=== PATIENT | female | born 1955 | race Caucasian/White ===

== ENCOUNTER 2017-12-01 10:19 | Emergency (ER) | payer BC ==
[~2017-12-01] VITALS: Ht 152.4 cm; Wt 86.0 kg
[2017-12-01 11:31] LABS: BASOPHILS % (AUTO) 0.6 % (0-1); EOSINOPHILS # (AUTO) 0.1 X10'3 (0-0.9); EOSINOPHILS % (AUTO) 1.4 % (0-6); HEMATOCRIT 42.2 % (35.0-45.0); HEMOGLOBIN 14.8 g/dl (12.0-16.0); LYMPHOCYTES # (AUTO) 1.2 X10'3 (1.1-4.8); LYMPHOCYTES % (AUTO) 15.4 % (21-51); MEAN CORPUSCULAR HEMOGLOBIN 34.7 PG (27.0-31.0); MEAN CORPUSCULAR HGB CONC 35.1 % (33.0-36.5); MEAN CORPUSCULAR VOLUME 98.7 FL (78-98); MEAN PLATELET VOLUME 9.1 FL (7.4-10.4); MONOCYTES # (AUTO) 0.3 X10'3 (0-0.9); NEUTROPHILS # (AUTO) 6.1 X10'3 (1.8-7.7); NEUTROPHILS % (AUTO) 78.6 % (42-75); PLATELET COUNT 176 X10'3 (140-440); RED BLOOD COUNT 4.27 X10'6 (4.20-5.60); RED CELL DISTRIBUTION WIDTH 13.1 % (11.5-14.5); WHITE BLOOD COUNT 7.8 X10'3 (4.5-11.0)
[2017-12-01 11:35] LABS: PARTIAL THROMBOPLASTIN TIME 22 SECONDS (22-32); PROTHROMBIN TIME 9.9 SECONDS (9.0-12.0)
[2017-12-01 11:47] LABS: ALANINE AMINOTRANSFERASE 78 U/L (12-78); ALBUMIN 4.1 G/DL (3.4-5.0); ANION GAP 14 (8-16); ASPARTATE AMINO TRANSFERASE 99 U/L (10-37); BILIRUBIN,TOTAL 0.6 MG/DL (0.1-1.0); BLOOD UREA NITROGEN 12 MG/DL (7-18); BUN/CREATININE RATIO 18.5 (6.6-38.0); CALCIUM 9.3 MG/DL (8.5-10.1); CHLORIDE 103 MMOL/L (99-107); CREATININE 0.65 MG/DL (0.40-0.90); GLUCOSE 125 MG/DL (70-104); POTASSIUM 4.3 MMOL/L (3.5-5.1); SODIUM 139 MMOL/L (135-145); TOTAL CARBON DIOXIDE 22.3 MMOL/L (24-32); TOTAL PROTEIN 8.2 G/DL (6.4-8.2); eGFR > 90 ML/MIN
[2017-12-01 11:48] LABS: ALKALINE PHOSPHATASE 139 IU/L (46-116)
[2017-12-01] MEDS ORDERED: metoclopramide 5 mg/ml inj IV ONE (12:40)
[2017-12-01] MEDS ORDERED: mag hydrox/Alum hydrox/simeth 30ml oral suspension PO ONE (12:40)
[2017-12-01] MEDS ORDERED: normal saline 1000ml 1,000 ML IV ONE (12:40)
[2017-12-01 12:58] LABS: LIPASE 56 U/L (73-393)
[2017-12-01] MEDS ORDERED: ondansetron/PF 4mg/2ml inj IV ONE (13:00)
[2017-12-01] MEDS ORDERED: meclizine 12.5mg tablet PO ONE (13:20)
[2017-12-01] MEDS ORDERED: ondansetron 4mg rapidly disintigrating tab PO ONE (13:20)
[2017-12-01 14:38] LABS: CLARITY,URINE CLEAR (Clear); COLOR,URINE YELLOW (Yellow); GLUCOSE, URINE NEGATIVE (Neg); KETONES,URINE TRACE mg/dl (Neg); LEUKOCYTE ESTERASE ,URINE NEGATIVE (Neg); NITRITES, URINE NEGATIVE (Neg); OCCULT BLOOD,URINE NEGATIVE (Neg); PH,URINE 5.5 (4.8-8.0); PROTEIN,URINE NEGATIVE (Neg); UROBILINOGEN,URINE 0.2 E.U/dL (0.2-1.0)
[2017-12-01 14:45] LABS: UA COLLECTION TYPE CLN CATCH MIDSTREAM
[2017-12-01] MEDS ORDERED: MECL-111 PO (15:47)
[2017-12-01 16:02] VITALS: BP 131/79
== END 2017-12-01 16:10 | disposition home or self-care (01) ==
LOC: ER 10:20
DX: R42 Dizziness and giddiness (principal); R11.10 Vomiting, unspecified; Z79.899 Other long term (current) drug therapy
CPT/HCPCS: 36415; 71045; 80053; 81003; 82948; 83690; 84484; 85025; 85610; 85730; 93005; 96360; 99285; J7030; J8597

== ENCOUNTER 2021-04-25 15:42 | Emergency (ER) | payer MEDICARE ==
[~2021-04-25] VITALS: Ht 152.4 cm; Wt 84.7 kg
[~2021-04-25 15:42] MED LIST: MECL-159 PO
[2021-04-25 16:30] VITALS: BP 163/94
[2021-04-25] MEDS ORDERED: sulfamethoxazole/trimethoprim DS (800/160mg) tablet PO ONE (16:50)
[2021-04-25] MEDS ORDERED: SULF1TAB48 PO (17:18)
== END 2021-04-25 17:44 | disposition home or self-care (01) ==
LOC: ER 15:42
DX: T81.33XD Disruption of traumatic injury wound repair, subsequent encounter (principal); L03.116 Cellulitis of left lower limb; Z79.2 Long term (current) use of antibiotics; Z79.899 Other long term (current) drug therapy; X58.XXXD Exposure to other specified factors, subsequent encounter
CPT/HCPCS: 73660; 99283

== ENCOUNTER 2021-05-01 12:34 | Emergency (ER) | payer MEDICARE ==
[~2021-05-01] VITALS: Ht 152.4 cm; Wt 79.0 kg
[~2021-05-01 12:34] MED LIST changes: +SULF1TAB48 PO
--- NOTE | 2021-05-01 13:01 | NUR ---
DAUGHTER SAYS PT HAS PAIN IN RIB CAGE, PT HAS BEEN TAKING IBUPROFEN FOR PAIN AND WANTS A STRONGER MEDICATION, DAUGHTER THINKS PATIENT MIGHT BE GOING SEPTIC, FOOT LACERATION BY DEER ANTLER WHICH GOT INFECTED
--- NOTE | 2021-05-01 13:01 | NUR ---
CHET [phone] CALL DAUGHTER TO GET INFO ON PATIENT
[2021-05-01 13:14] VITALS: BP 124/83
[2021-05-01 13:55] LABS: BASOPHILS # (AUTO) 0.1 X10'3 (0-0.2); BASOPHILS % (AUTO) 0.8 % (0-1); EOSINOPHILS # (AUTO) 0.8 X10'3 (0-0.9); EOSINOPHILS % (AUTO) 12.4 % (0-6); HEMATOCRIT 40.6 % (35.0-45.0); HEMOGLOBIN 13.6 g/dl (12.0-16.0); LYMPHOCYTES # (AUTO) 1.4 X10'3 (1.1-4.8); LYMPHOCYTES % (AUTO) 21.7 % (21-51); MEAN CORPUSCULAR HEMOGLOBIN 33.8 PG (27.0-31.0); MEAN CORPUSCULAR HGB CONC 33.4 g/dL (33.0-36.5); MEAN CORPUSCULAR VOLUME 101.2 FL (78-98); MEAN PLATELET VOLUME 10.2 FL (7.4-10.4); MONOCYTES # (AUTO) 0.3 X10'3 (0-0.9); MONOCYTES % (AUTO) 4.9 % (2-12); NEUTROPHILS % (AUTO) 60.2 % (42-75); PLATELET COUNT 149 X10'3 (140-440); RED BLOOD COUNT 4.01 X10'6 (4.20-5.60); RED CELL DISTRIBUTION WIDTH 13.1 % (11.5-14.5); WHITE BLOOD COUNT 6.6 X10'3 (4.5-11.0)
[2021-05-01 14:16] LABS: ALANINE AMINOTRANSFERASE 134 U/L (12-78); ALBUMIN 3.9 G/DL (3.4-5.0); ALBUMIN/GLOBULIN RATIO 1.1 (1.1-1.5); ALKALINE PHOSPHATASE 134 IU/L (46-116); ANION GAP 10 (8-16); ASPARTATE AMINO TRANSFERASE 75 U/L (10-37); BILIRUBIN,TOTAL 0.4 MG/DL (0.1-1.0); BLOOD UREA NITROGEN 9 MG/DL (7-18); BUN/CREATININE RATIO 10.8 (6.6-38.0); CALCIUM 8.7 MG/DL (8.5-10.1); CHLORIDE 105 MMOL/L (99-107); CREATININE 0.83 MG/DL (0.40-0.90); GLUCOSE 106 MG/DL (70-104); POTASSIUM 4.4 MMOL/L (3.5-5.1); SODIUM 139 MMOL/L (135-145); TOTAL CARBON DIOXIDE 23.7 MMOL/L (24-32); TOTAL PROTEIN 7.3 G/DL (6.4-8.2); eGFR 69 ML/MIN
[2021-05-01 17:29] LABS: MAGNESIUM 2.1 MG/DL (1.5-2.4)
[2021-05-01 17:36] LABS: ETHANOL < 0.010 GM/DL (0.0-0.010)
--- NOTE | 2021-05-01 18:29 | NUR ---
pt seen and dc'd by provider
== END 2021-05-01 18:31 | disposition home or self-care (01) ==
LOC: ER 12:35
DX: S90.922D Unspecified superficial injury of left foot, subsequent encounter (principal); R07.81 Pleurodynia; R19.7 Diarrhea, unspecified; Z98.890 Other specified postprocedural states; Z79.2 Long term (current) use of antibiotics; Z79.899 Other long term (current) drug therapy; X58.XXXD Exposure to other specified factors, subsequent encounter
CPT/HCPCS: 36415; 71046; 80053; 80320; 83605; 83735; 84145; 84484; 85025; 87040; 93005; 99285

== ENCOUNTER 2022-05-23 09:14 | Emergency (ER) | payer MEDICARE ==
[~2022-05-23] VITALS: Ht 152.4 cm; Wt 83.2 kg
[~2022-05-23 09:14] MED LIST changes: -SULF1TAB48 PO
[2022-05-23 09:18] VITALS: BP 140/78
[2022-05-23] MEDS ORDERED: BENZ-38 PO (09:53)
[2022-05-23] MEDS ORDERED: NIRM1TAB5 PO (09:53)
== END 2022-05-23 10:19 | disposition home or self-care (01) ==
LOC: ER 09:15
DX: U07.1 COVID-19 (principal); Z79.899 Other long term (current) drug therapy
CPT/HCPCS: 99283